=== PATIENT | female | born 1995 | race Caucasian/White ===

== ENCOUNTER 2018-10-01 21:45 | Emergency (ER) | payer BC ==
[~2018-10-01] VITALS: Ht 170.2 cm; Wt 66.4 kg
[2018-10-01 21:50] VITALS: Ht 170.2 cm; Wt 66.4 kg
[2018-10-01] MEDS ORDERED: TORADOL10 MG PO (22:41)
[2018-10-01 23:14] VITALS: BP 127/62
== END 2018-10-01 23:15 | disposition home or self-care (01) ==
LOC: D.ER 21:45
DX: S29.012A Strain of muscle and tendon of back wall of thorax, initial encounter (principal); X50.9XXA Other and unspecified overexertion or strenuous movements or postures, initial encounter; Y93.89 Activity, other specified; Y92.019 Unspecified place in single-family (private) house as the place of occurrence of the external cause

== ENCOUNTER 2019-12-25 05:17 | Inpatient (IN) | payer BC ==
[~2019-12-25] VITALS: Ht 170.2 cm; Wt 73.5 kg
[~2019-12-25 05:17] MED LIST: TORADOL10 MG PO
[2019-12-25 05:25] VITALS: BP 120/75; Ht 170.2 cm; Wt 73.5 kg
[2019-12-25] MEDS ORDERED: PRENAVITE1 TAB PO (05:25)
[2019-12-25 07:24] LABS: HEMATOCRIT 35.7 % (36.0-48.0); HEMOGLOBIN 11.9 g/dL (12-16); MCH 30.1 pg (26.0-34.0); MCHC 33.3 g/dL (31.0-37.0); MCV 90.2 fL (80.0-100.0); MEAN PLATELET VOLUME 11.4 fL (7.4-10.4); RBC 3.96 10x6/uL (4.00-5.40); RDW 12.9 % (11.5-14.5); WBC 7.5 10x3/uL (4.8-10.8)
[2019-12-25 07:41] LABS: UDS - AMPHET NEGATIVE QUAL (NEGATIVE); UDS - BARB NEGATIVE QUAL (NEGATIVE); UDS - BENZO NEGATIVE QUAL (NEGATIVE); UDS - COCAINE NEGATIVE QUAL (NEGATIVE); UDS - OPIATE NEGATIVE QUAL (NEGATIVE); UDS - PCP NEGATIVE QUAL (NEGATIVE); UDS - THC NEGATIVE QUAL (NEGATIVE)
--- NOTE | 2019-12-25 21:50 | NUR ---
PT TREANSFERRED TO ROOM 1257 AMBULATORY AT THIS TIME. DENIES PAIN. Britt ALVAREZ RN
--- NOTE | 2019-12-25 22:15 | NUR ---
PT PROVIDED WITH WATER. NO NEEDS VOICED. Britt ALVAREZ RN
--- NOTE | 2019-12-26 00:15 | NUR ---
PT REC'D IN BED AT THIS TIME. RESTING WELL AT THIS TIME. NO DISTRESS NOTED AT THIS TIME . Britt ALVAREZ RN
--- NOTE | 2019-12-26 02:20 | NUR ---
pt restingat this time. no distress noted. ike ritchie rn
--- NOTE | 2019-12-26 04:20 | NUR ---
PT REC'D IN BED AT THIS TIME RESTING COMFORTABLY. NO DISTRESS NOTED. Britt ALVAREZ RN
--- NOTE | 2019-12-26 06:10 | NUR ---
PT REC'D IN BED AT THIS TIME ON CELL PHONE. NO DISTRESS NOTED AT THIS TIME. NO NEEDS VOICED. Britt ALVAREZ RN
[2019-12-26 06:44] LABS: BASOPHILS 0.1 % (0-2); HEMATOCRIT 30.9 % (36.0-48.0); HEMOGLOBIN 10.2 g/dL (12-16); IMMATURE GRANULOCYTES 0.3 % (0-5); LYMPHOCYTES 18.3 % (15-50); MCH 29.8 pg (26.0-34.0); MCV 90.4 fL (80.0-100.0); MEAN PLATELET VOLUME 11.2 fL (7.4-10.4); MONOCYTES 7.7 % (2-11); NEUTROPHILS 72.6 % (40-80); PLATELET COUNT 138 10x3/uL (130-400); RBC 3.42 10x6/uL (4.00-5.40); RDW 12.9 % (11.5-14.5)
[2019-12-26 07:15] LABS: RAPID PLASMA REAGIN Non Reactive (Non Reactive)
[2019-12-26 07:30] VITALS: BP 103/60
--- NOTE | 2019-12-26 07:30 | NUR ---
RECEIVED PT SITTING UP IN BED. AWAKE. VSS. HRRR WITHOUT AUDIBLE MURMUR. BBS CLEAR. BS X 4. ABDOMEN SOFT/NON-DISTENDED. FUNDUS FIRM AT U/2. RUBRA LOCHIA SMALL AMT. PT DENIES HEAVY BLEEDING OR PASSING CLOTS. PERINEUM WITHOUT EDEMA. NEG HOMANS' SIGN. PPP. MILD, NON-PITTING EDEMA NOTED TO BLE. SL TO RIGHT HAND. SITE CLEAR. PT C/O PAIN TO PERINEUM OF "5" ON 0-10 PAIN SCALE. MOTRIN 600 MG GIVEN PO ORDERED. PT INSTRUCTED ON MED. VERBALIZES UNDERSTANDING. SR UPX 2. CALL LIGHT IN REACH.
--- NOTE | 2019-12-26 08:58 | NUR ---
PT LYING TO RIGHT SIDE IN BED. EYES CLOSED. RESP NON-LABORED. PT NOT DISTURBED TO ALLOW FOR REST.
--- NOTE | 2019-12-26 10:10 | NUR ---
DR CARDONA VISITS WITH PT.
--- NOTE | 2019-12-26 10:19 | NUR ---
PT SITTING UP IN BED. CARING FOR INFANT. DENIES PAIN OR NEEDS.
--- NOTE | 2019-12-26 12:10 | NUR ---
PT SITTING UP IN BED. CARING FOR INFANT. DENIES PAIN OR NEEDS.
--- NOTE | 2019-12-26 13:25 | NUR ---
SL DC'D WITH CATHELON INTACT. PRESSURE BANDAGE TO SITE. PT ANITHA WELL.
[2019-12-26 15:00] VITALS: BP 105/53
--- NOTE | 2019-12-26 15:00 | NUR ---
PT IN SEMI-RIOS'S POSITION IN BED. AWAKE. VSS. FUNDUS FIRM AT U/3. RUBRA LOCHIA SMALL AMT. PT DENIES HEAVY BLEEDING OR PASSING CLOTS. DENIES NEEDS OR C/O.
--- NOTE | 2019-12-26 15:30 | NUR ---
PT PROVIDED SURGICAL SPLINT PILLOW AND INSTRUCTED ON TCDB. PT DEMONSTRATES UNDERSTANDING. PT ALSO PULLS 1800 ON INCENTIVE SPIROMETER WITH GOOD EFFORT.
--- NOTE | 2019-12-26 15:36 | NUR ---
PT UP TO SHOWER. BED LINENS CHANGED.
--- NOTE | 2019-12-26 18:24 | NUR ---
PT C/O PAIN TO PERINEUM OF "5" ON 0-10 PAIN SCALE. MOTRIN 600 MG GIVEN PO ORDERED. PT ALSO REQUESTS AND RECEIVES PERIPADS.
--- NOTE | 2019-12-26 18:58 | NUR ---
THIS RN AND Jairo VERGARA RN TO BEDSIDE FOR BEDSIDE SHIFT REPORT. REC'D PT AA&O X 4 SITTING ON SIDE OF BED EATING DINNER THAT HER SIG OTHER HAS JUST BROUGHT. PT INFORMED THAT THIS RN WILL GIVE THEM TIME TO EAT AND WILL RETURN LATER FOR SHIFT ASSESSMENT. PT DENIES NEEDS AND STATES HER PAIN "IS FINE" AT THIS TIME.
[2019-12-26 19:50] VITALS: BP 109/64
--- NOTE | 2019-12-26 19:50 | NUR ---
THIS RN TO BEDSIDE FOR SHIFT ASSESSMENT. PT HAS FINISHED EATING, IS SITTING UP IN BED W/BABY AT HER SIDE. PAIN ASSESSED. PT DENIES PAIN AT PRESENT. SHIFT ASSESSMENT COMPLETED. SEE FLOWSHEET. PM SHIFT POC DISCUSSED. PT AND SIG OTHER AGREEABLE. PT DECLINES OFFERS TO BRING HER ANYTHING AT THIS TIME. BED LOW, SIDE RAILS UP X 2. CALL LIGHT AT BEDSIDE. PP BLEEDING TEACHING DONE.
--- NOTE | 2019-12-26 21:04 | NUR ---
ROUNDS MADE. PT UP TO BR AT THIS TIME. SIG OTHER IN ROOM. PT TO NOTIFY VIA CALL LIGHT IF SHE HAS NEEDS ONCE SHE COMES OUT OF THE BR.
--- NOTE | 2019-12-26 22:28 | NUR ---
ROUNDS MADE. PT LYING AWAKE IN BED W/BABY UP IN ARMS. SIG OTHER AT BEDSIDE. PAIN AND NEEDS ASSESSED. PT DENIES EITHER.
--- NOTE | 2019-12-27 00:30 | NUR ---
ROUNDS MADE. PT UP TO BR AT THIS TIME. PAIN AND NEEDS ASSESSED. PT REPORTS "SOME" PAIN/ACHING. MOTRIN OFFERED. PT ACCEPTS. DENIES NEEDING ANYTHING TO EAT OR DRINK. SEE EMAR. PT AND SIG OTHER PLAN TO REST. LIGHTS TURNED DOWN.
--- NOTE | 2019-12-27 02:30 | NUR ---
ROUNDS MADE. PT RESTING QUIETLY W/EYES CLOSED TO RT SIDE. RESP EVEN AND UNLABORED. PT LEFT UNDISTURBED AT THIS TIME TO ALLOW FOR REST.
--- NOTE | 2019-12-27 04:34 | NUR ---
rounds made. pt remains on left side w/eyes closed. resp even and unlabored. pt left undisturbed.
--- NOTE | 2019-12-27 06:05 | NUR ---
ROUNDS MADE. PT LYING AWAKE IN BED. PAIN AND NEEDS ASSESSED. PT DENIES PAIN OR NEEDS. DECLINES OFFER TO BRING HER ANYTHING TO EAT OR DRINK.
[2019-12-27 07:30] VITALS: BP 117/73
--- NOTE | 2019-12-27 07:30 | NUR ---
TO ROOM FOR ASSESSMENT. MOM SITTING UP IN BED HOLDING BABY. HRR, LUNG SOUNDS CLEAR DAVID. ABD SOFT WITH BS X 4. MOM STATED SHE HAD MOD BLEEDING. FUNDAS FIRM. DIDN'T HAVE MOTRIN @ 06, REQUESTED MOTRIN. CONT. PLAN OF CARE.
--- NOTE | 2019-12-27 15:55 | MORECARE ---
CASE MANAGEMENT DISCHARGE SUMMARY PATIENT: PARVEEN DILLARD UNIT: [id number] ADM DATE: 12/25/19 AGE: 24 : [birth year] SEX: F ROOM/BED: D.1257 AUTHOR: HAYDEN BUTLER PHYSICIAN: REFERRING PHYSICIAN: WAYNE CARDONA MD DATE OF SERVICE: 12/27/19 Discharge Plan Patient Name: PARVEEN DILLARD [facility] : 1995 Planned Disposition: Home Anticipated Discharge Date: Discharge Date: Expected LOS: Initial Reviewer: [email or web address] Initial Review Date: 12/25/2019 Generated: 12/27/19 4:55 pm Patient Name: PARVEEN DILLARD Page 24051 at 1559 All edits/amendments must be made on the electronic document DICTATION DATE: 12/27/19 1555 BREAD WRAPPING MACHINE FEEDER: PEGGY 12/27/19 1555 RPT#: [id number] DC DATE: STATUS: ADM IN [facility] [address] [place] [address] END OF REPORT
--- NOTE | 2019-12-27 16:54 | MORECARE ---
CASE MANAGEMENT DISCHARGE SUMMARY PATIENT: PARVEEN DILLARD UNIT: [id number] ADM DATE: 12/25/19 AGE: 24 : 89 SEX: F ROOM/BED: D.1257 AUTHOR: HAYDEN BUTLER PHYSICIAN: REFERRING PHYSICIAN: WAYNE CARDONA MD DATE OF SERVICE: 12/27/19 Discharge Plan Patient Name: PARVEEN DILLARD [facility] [facility] 1995 Planned Disposition: Home Anticipated Discharge Date: 12/27/19 Discharge Date: Expected LOS: 2 Initial Reviewer: [email or web address] Initial Review Date: 12/25/2019 Generated: 12/27/19 5:54 pm Last DP export: 12/27/19 2:55 p Patient Name: PARVEEN DILLARD Page [id number] at 1654 All edits/amendments must be made on the electronic document DICTATION DATE: 12/27/191653 SHUTTLE VAN DRIVER: PEGGY 12/27/191653 RPT#: [id number] DC DATE: STATUS: ADM IN [facility] [address] [place] [address] END OF REPORT
--- NOTE | 2019-12-27 17:51 | NUR ---
DISCHARGE INSTRUCTIONS REVIEWED WITH PATIENT. DISCHARGE PAPERWORK SIGNED. PATIENT DENIED ANY QUESTIONS OR CONCERNS AT THIS TIME.
--- NOTE | 2019-12-27 18:22 | NUR ---
BABY LOADED IN CARSEAT. MOM IN WHEELCHAIR. ESCORTED OUT THROUGH ER. WATCHED DAD PLACE BABY IN VEHICLE. BABY SECURE.
--- NOTE | 2019-12-30 08:02 | MORECARE ---
CASE MANAGEMENT DISCHARGE SUMMARY PATIENT: PARVEEN DILLARD UNIT: [id number] ADM DATE: 12/25/19 AGE: 24 : 89 SEX: F ROOM/BED: D.1257 AUTHOR: HAYDEN BUTLER PHYSICIAN: REFERRING PHYSICIAN: WAYNE CARDONA MD DATE OF SERVICE: 12/30/19 Discharge Plan Patient Name: PARVEEN DILLARD [facility] [facility] 1995 Planned Disposition: Home Anticipated Discharge Date: 12/27/19 Discharge Date: 12/27/2019 Expected LOS: 2 Initial Reviewer: [email or web address] Initial Review Date: 12/25/2019 Generated: 12/30/19 9:02 am Last DP export: 12/27/19 3:54 p Patient Name: PARVEEN DILLARD Page [id number] at 0802 All edits/amendments must be made on the electronic document DICTATION DATE: 12/30/19 0802 VMWARE ADMINISTRATOR: PEGGY 12/30/19 0802 RPT#: [id number] DC DATE:12/27/19 STATUS: DIS IN [facility] [address] [place] [address] END OF REPORT
--- NOTE | 2019-12-30 17:06 | MORECARE ---
CASE MANAGEMENT DISCHARGE SUMMARY PATIENT: PARVEEN DILLARD UNIT: [id number] ADM DATE: 12/25/19 AGE: 24 : [birth year] SEX: F ROOM/BED: D.1257 AUTHOR: HAYDEN BUTLER PHYSICIAN: REFERRING PHYSICIAN: WAYNE CARDONA MD DATE OF SERVICE: 12/30/19 Discharge Plan Patient Name: PARVEEN DILLARD [facility] [facility] 1995 Planned Disposition: Home Anticipated Discharge Date: 12/27/19 Discharge Date: 12/27/2019 Expected LOS: 2 Initial Reviewer: [email or web address] Initial Review Date: 12/25/2019 Generated: 12/30/19 6:06 pm Last DP export: 12/30/19 7:02 a Patient Name: PARVEEN DILLARD Page [id number] at 1706 All edits/amendments must be made on the electronic document DICTATION DATE: 12/30/191705 TRAVEL COUNSELOR: PEGGY 12/30/191705 RPT#: [id number] DC DATE:12/27/19 STATUS: DIS IN [facility] [address] [place] [address] END OF REPORT
== END 2019-12-27 18:20 | disposition home or self-care (01) | DRG 807 ==
LOC: D.LD 05:17
PROVIDERS: ADMIT Obstetrics & Gynecology; ATTEND Obstetrics & Gynecology
PROC: 10E0XZZ Delivery of Products of Conception, External Approach (ICD-10-PCS; principal; 2019-12-25)
PROC: 0KQM0ZZ Repair Perineum Muscle, Open Approach (ICD-10-PCS; 2019-12-25)
PROC: 3E033VJ Introduction of Other Hormone into Peripheral Vein, Percutaneous Approach (ICD-10-PCS; 2019-12-25)
DX: O99.824 Streptococcus B carrier state complicating childbirth (principal); Z37.0 Single live birth; Z3A.39 39 weeks gestation of pregnancy; O70.1 Second degree perineal laceration during delivery